=== PATIENT | female | born 1960 | race Caucasian/White ===

== ENCOUNTER 2022-08-30 11:02 | Observation (INO) | payer OTHER, SELFPAY ==
[2022-08-30] VITALS (24 sets, daily range): BP systolic 108–181; BP diastolic 80–148; PULSE 49–75; RESP 9–24; TEMP 36.1–36.6; O2SAT 96–100; BMI 21.8
--- NOTE | ~2022-08-30 | XR_ITS ---
EXAMINATION: XR chest 2V DATE: 08/30/2022 11:52 INDICATION: Palpitations. Shortness of breath. Dizziness. TECHNIQUE: Frontal and lateral views of the chest were obtained. COMPARISON: None. FINDINGS: The chest demonstrates clear lungs without pneumonia, pleural effusion, or pneumothorax. Th e heart size is normal. There are changes of anterior fusion procedure in cervical spine. There are s uture anchors in the humeral heads. IMPRESSION: 1. No acute cardiopulmonary disease. Reviewed, dictated and finalized at location A. [facility]
--- NOTE | 2022-08-30 11:10 | ECG_ITS ---
Measurements Intervals [place] Rate: 58 P: 65 AR: 168 QRS: 33 QRSD: 90 T: 21 QT: 401 QTc: 394 Interpretive Statements SINUS BRADYCARDIA FREQUENT ATRIAL PREMATURE COMPLEXES BASELINE ARTIFACT- V6 ABNORMAL ECG NO PREVIOUS ECG AVAILABLE FOR COMPARISON Electronically Signed On 08-30-2022 14:35:27 [employer]IE[employer] by Santino Caruso D.O.
[2022-08-30 12:16] LABS: Basophils Percent Auto 0.7 % (0.2-1.2); Eosinophils Absolute Auto 0.2 K/mm3 (0-0.3); Eosinophils Percent Auto 3.6 % (0-4.4); Hematocrit 41.6 % (37.0-47.0); Hemoglobin 13.7 g/dL (12.0-15.0); Immature Granulocyte Absolute 0.02 K/mm3 (0.00-0.031); Immature Granulocyte Percent A 0.3 % (0-0.5); Lymphocytes Absolute Auto 1.63 K/mm3 (0.9-3.2); Lymphocytes Percent Auto 27.8 % (18.3-44.2); Mean Corpuscular HGB Conc 32.9 g/dl (32-36); Mean Corpuscular Hemoglobin 27.7 pg (26-34); Mean Platelet Volume 9.8 fl (7.4-10.4); Monocytes Absolute Auto 0.7 K/mm3 (0.1-0.6); Monocytes Percent Auto 11.6 % (2.6-8.5); Neutrophils Absolute Auto 3.3 K/mm3 (1.3-6.7); Platelet Count Result 242 k/mm3 (150-375); Red Blood Count 4.95 M/mm3 (4.2-5.4); Red Cell Distribution Width 13.3 % (11.5-14.5); White Blood Count 5.9 K/mm3 (4.5-10.0)
[2022-08-30 12:25] LABS: Appearance Urine Clear (Clear); Bilirubin Urine Negative (Negative); Blood Urine Negative (Negative); Color Urine Yellow (Yellow); Glucose Urine UA Negative (Negative); Ketones Urine Negative (Negative); Leukocyte Esterase Ur Negative LEU/UL (Negative); Nitrate Urine Negative (Negative); Protein Urine Negative (Negative); Specific Grav Ur 1.015 (1.001-1.035); Urobilinogen Urine 0.2 mg/dL (<2.0)
[2022-08-30 12:26] LABS: Alanine Aminotransferase 25 U/L (6-35); Alkaline Phosphatase 82 U/L (38-126); Anion Gap 5 mmol/L (8-16); Aspartate Amino Transferase 30 U/L (14-36); Bilirubin,Total 0.5 mg/dL (0.2-1.3); Blood Urea Nitrogen 14 mg/dL (7-17); Calcium 9.5 mg/dL (8.4-10.2); Carbon Dioxide 30 mmol/L (22-30); Chloride 100 mmol/L (98-107); Estimated Glomerular Filt Rate > 60; Glucose 89 mg/dL (65-110); Magnesium 1.7 mg/dL (1.6-2.3); Potassium 4.1 mmol/L (3.4-5.0); Sodium 135 mmol/L (137-145)
[2022-08-30 12:28] LABS: Add Urine Microscopic? NO
[2022-08-30 12:29] LABS: Prothrombin Time 13.1 Seconds (11.1-14.7)
[2022-08-30 12:30] LABS: Partial Thromboplastin Time 41.2 SECONDS (22.3-36.8)
[2022-08-30 12:37] LABS: NT Pro B Type Natriuretic Pept 1240 pg/mL (19.9-100); Troponin I < 0.012 ng/mL (0.000-0.034)
--- NOTE | 2022-08-30 12:37 | ED.ARRPALP ---
HPI - Arrhythmia/Palpitations General Chief Complaint: Arrhythmia/Palpitations Stated Complaint: heart palpatations Time Seen by Provider: 08/30/22 11:12 History of Present Illness HPI narrative: Patient is a 62-year-old female who presents ER with heart palpitations. Ongoing for 2 days. Worsening today. Reports occasional lightheadedness. Feels as if her heart skipping beats. She takes nebivolol. No history of arrhythmia in the past. No chest pain or chest pressure. Has occasional shortness of breath. No fevers or chills or sweats. Related Data Allergies Allergy/AdvReac Type Severity Reaction Status Date / Time Sulfa (Sulfonamide Allergy Unknown Verified 09/29/15 12:44 Antibiotics) ciprofloxacin AdvReac Unknown Verified 09/29/15 12:44 QUINOLINS AdvReac Unknown Uncoded 09/29/15 12:44 Review of Systems Review of Systems: All systems reviewed & are unremarkable except as noted in HPI and below Constitutional: Constitutional: Denies chills, Denies fatigue and Denies fever(s) ENT: Denies nasal congestion and Denies sore throat Cardiovascular: Cardiovascular: Denies chest pain and Denies radiating jaw, neck or arm pain Comments: Palpitations Respiratory: Respiratory: Denies cough, Reports dyspnea and Denies wheezing Gastrointestinal: Gastrointestinal: Denies abdominal pain, Denies nausea and Denies vomiting Integumentary/Breasts: Skin/Breast: Denies erythema and Denies rash Neurologic: Reports dizziness, Denies syncope, Denies focal weakness and Denies numbness PMFSH Past Medical History Medical History (Updated 08/30/22 @ 14:38 by Emory Kiran MD) Depression Hyperlipidemia Hypertension Hypothyroidism Thyroid cancer Status post thyroidectomy. Surgical History Surgical History (Updated 08/30/22 @ 14:13 by Asya Modi PA-C) History of fusion of cervical spine (2009) History of hysterectomy History of thyroidectomy Social History Social History (Updated 08/30/22 @ 14:13 by Asya Modi PA-C) Social History: Surrogate medical decision maker: Reinier Samaniego, spouse. Code status: Full code. Additional living arrangements comments: Lives with spouse in [place]. Additional occupation/education comments: Works at [employer]. Exam Narrative: GENERAL: Well-appearing, well-nourished, and in no acute distress. HEAD: Normocephalic, atraumatic. EYES: PERRL and EOMI. ENT: Mucous membranes moist. CHEST: Clear to auscultation. No respiratory distress. HEART: Bradycardic and regular. Normal peripheral pulses. ABDOMEN: Soft, nontender, nondistended. EXTREMITIES: Normal range of motion. No edema. SKIN: Warm, dry, no rash. NEURO: Alert and oriented x3. PSYCH: Normal mood and affect. Course Course Emergency Course: Patient resting comfortably. Aware of diagnosis and treatment plan. Patient did have a 12-13 beat run of V. tach while in the ER and she was dizzy during it. Patient will be admitted to the hospitalist service. Cardiology has been contacted and will consult. Dr. Lewis wishes for the patient to have TSH and free T4 level added on and he would also like her to have an echocardiogram. Vital Signs Vital signs: Vital Signs Temperature 97.4 F L 08/30/22 11:07 Pulse Rate 51 L 08/30/22 11:07 Respiratory Rate 18 08/30/22 11:07 Blood Pressure 162/94 H 08/30/22 11:07 Pulse Oximetry 99 08/30/22 11:07 Oxygen Delivery Room Air 08/30/22 11:07 Temperature 97.4 F L 08/30/22 11:07 Pulse Rate 51 L 08/30/22 11:07 Respiratory Rate 18 08/30/22 11:07 Blood Pressure 162/94 H 08/30/22 11:07 Pulse Oximetry 99 08/30/22 11:07 Oxygen Delivery Room Air 08/30/22 11:07 MDM - Arrhythmia/Palpitations Lab Data 08/30/22 12:10 08/30/22 12:10 Labs: Lab Results 08/30/22 08/30/22 08/30/22 Range/Units 12:09 12:10 12:10 WBC 5.9 (4.5-10.0) K/mm3 RBC 4.95 (4.2-5.4) M/mm3 Hgb 13.
--- NOTE | 2022-08-30 14:00 | PM.IMHP ---
H&P: HPI History of Present Illness Date/Time: 08/30/22 14:00 Chief Complaint: Palpitations. Narrative: This is a very pleasant 62-year-old female with hypertension, hyperlipidemia, and hypothyroidism who presented to the emergency department for evaluation of palpitations. Patient provides the following history. Wednesday evening while watching television she developed sensations of fluttering in her chest and palpitations, almost as though she was skipping beats. Wednesday she and her were out furniture shopping and when she stood up from a sofa she suddenly felt near syncopal with palpitations. She felt better with rest and they returned home. Since that time she has had pretty continuous palpitations and fatigue. She has noticed that her heart rate has been in the 50s with a baseline heart rate in the 80s. She was started on nebivolol about 6 months ago though she does not think she had a drastic change in her heart rate and only noticed the bradycardia recently. CMP, CBC, troponin, and TSH were really unremarkable. Blood pressures have been stable since arrival. EKG showed a sinus bradycardia with frequent atrial premature complexes. While in the emergency department she did have an episode of nonsustained ventricular tachycardia and she is being admitted in this setting for close monitoring and Cardiology consultation. At the time my evaluation she feels okay and has no complaints. She has no known history of cardiac disease or dysrhythmia. No family history of long QT syndrome. She has not had chest pain, pleuritic pain, or palpitations. No new medications recently. Review of Systems Review of Systems: Twelve systems were reviewed and are negative except for as per HPI. COUNT INCLUDES THE [facility] Past Medical History Medical History (Updated 08/30/22 @ 20:46 by Asya Modi PA-C) Depression Fibromyalgia Hyperlipidemia Hypertension Hypothyroidism Thyroid cancer Status post partial thyroidectomy. Surgical History Surgical History (Updated 08/30/22 @ 20:46 by Asya Modi PA-C) History of fusion of cervical spine (2009) History of hysterectomy History of partial thyroidectomy History of repair of rotator cuff Bilateral. Family History Family History Father Acute myocardial infarction Social History Social History (Updated 08/30/22 @ 20:46 by Asya Modi PA-C) Social History: Surrogate medical decision maker: Reinier Samaniego, spouse. Code status: Full code. Smoking status: Never smoker Alcohol intake: current Drinks per week: 1 Substance use type: does not use Lack of Transportation: No Lack of Food: Never True Current Housing: I Have Housing Concerned About Future Housing: No Difficulty Paying Gas/Electric Bills: No Difficulty Paying for Meds: No Currently Unemployed: No Education: Bachelor's Degree Difficulty w/ Childcare or Family Care: No Additional living arrangements comments: Lives with spouse in [place]. 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 Spiritual care concerns: No Meds Home Medications and Allergies Home Medications Medication Instructions Recorded Confirmed Type albuterol sulfate 90 mcg/actuation 90 mcg inhalation Q12-24H PRN 08/30/22 08/30/22 History aerosol inhaler Shortness Of Breath atorvastatin 40 mg tablet 40 mg PO DAILY 08/30/22 08/30/22 History citalopram 40 mg tablet 40 mg PO DAILY 08/30/22 08/30/22 History cyclobenzaprine 10 mg tablet 10 mg PO Q12-24H PRN Pain, Moderate 08/30/22 08/30/22 History levothyroxine 125 mcg tablet 125 mcg PO DAILY 08/30/22 08/30/22 History nebivolol 10 mg tablet 10 mg PO DAILY 08/30/22 08/30/22 History rizatriptan 10 mg tablet 10 mg PO DAILY PRN Migraine 08/30/22 08/30/22 History Headache sulindac 150 mg tablet 150 mg PO HS 08/30/22 08/30/22 History valsartan 160 mg tablet 160 mg PO BID
[2022-08-30 14:28] LABS: Free T4 Free Thyroxine 1.71 ng/mL (0.78-2.19)
[2022-08-30 16:27] LABS: Troponin I < 0.012 ng/mL (0.000-0.034)
--- NOTE | 2022-08-30 16:28 | ADMGEN ---
This patient, Maci Samaniego, was admitted to IMU Room 200-01. 15:42 Patient/family oriented to hospital policies and general routines including ID bracelet, bed and alarms, visiting hours, pain management, procedures, bathroom and other care routines, personal items, smoking policy, room service/diet, and visiting hours. Information on how to activate the Rapid Response Team has been discussed. Patient/Family are encouraged to report perceived risks to care and to ask questions if they do not understand what they are told or what they should do.
[2022-08-30] MEDS: ACETAMINOPHEN 325 MG TABLET 650 MG PO (17:08)
[2022-08-30 18:26] LABS: Troponin I < 0.012 ng/mL (0.000-0.034)
[2022-08-31] VITALS (12 sets, daily range): BP systolic 129–157; BP diastolic 54–95; PULSE 51–71; RESP 16–20; TEMP 36–36.5; O2SAT 96–99
[2022-08-31 04:18] LABS: Anion Gap 3 mmol/L (8-16); Blood Urea Nitrogen 13 mg/dL (7-17); Calcium 9.2 mg/dL (8.4-10.2); Carbon Dioxide 33 mmol/L (22-30); Chloride 104 mmol/L (98-107); Estimated CRCL calculation 62 ml/min; Estimated Glomerular Filt Rate > 60; Glucose 93 mg/dL (65-110); Magnesium 1.8 mg/dL (1.6-2.3); Potassium 4.3 mmol/L (3.4-5.0); Sodium 140 mmol/L (137-145)
--- NOTE | 2022-08-31 06:00 | ECHO_ITS ---
Patient Info Name: Maci Samaniego Age: 62 years : 1960 Gender: Female Ht: 71 in Wt: 156 lbs BSA: 1.88 m2 HR: 58 bpm BP: 136 / 54 mmHg Heart Rhythm: Sinus Rhythm Exam Date: 08/31/2022 7:53 AM Exam Location: [facility] Patient Status: Outpatient Admit Date: 08/30/2022 Staff Ordering Physician: Emory Kiran MD Typesetting Machine Operator/Tender: Saman Pina RDCS, RT Attending Provider: Flavia Austin PA-C Referring Physician: Magno BALDWIN; Exam Type: CA echo doppler color flow Study Info Indications - V-tach I45.89 - Other specified conduction disorders Complete two-dimensional, color flow and Doppler transthoracic echocardiogram is performed. Strain analysis performed. Summary 1. Complete two-dimensional, color flow and Doppler transthoracic echocardiogram is performed. 2. Left ventricular chamber dimension is normal. 3. Left ventricular systolic function is normal, estimated at 55-60%. 4. Global longitudinal strain is normal at -21 %. 5. Right ventricular systolic function is normal. 6. No significant valvular disease. Left Ventricle Left ventricular chamber dimension is normal. Left ventricular systolic function is normal, estimated at 55-60%. There is no increased left ventricular wall thickness. The left ventricular diastolic function is normal. Global longitudinal strain is normal at -21 %. Right Ventricle Right ventricular chamber dimension is normal. Right ventricular systolic function is normal. Left Atria Left atrial chamber dimension is normal. Right Atria Right atrial chamber dimension is normal. Atrial Septum Intact interatrial septum visualized by color flow imaging. Aortic Valve The aortic valve is not well visualized. There is no aortic valve stenosis. There is no aortic valve regurgitation. There is mild aortic valve calcification. Pulmonic Valve The pulmonic valve is not well visualized. Mitral Valve The mitral valve has normal leaflets. There is no mitral valve stenosis. There is trace mitral valve regurgitation. Tricuspid Valve There is trace tricuspid valve regurgitation. Pericardium/Pleural There is no pericardial effusion. Inferior Vena Cava Normal inferior vena cava with <50% collapse upon inspiration consistent with elevated right atrial pressure, 8 mmHg. Aorta The aortic root size at the sinus of Valsalva is normal. There is mild aortic atherosclerosis. Left Ventricular Outflow Tract Name Value Normal LVOT 2D LVOT Diameter 2.0 cm LVOT Doppler LVOT Peak Gradient 4 mmHg LVOT Mean Gradient 3 mmHg LVOT VTI 26 cm LVOT VTI/AV VTI Ratio 1.0 LVOT Stroke Volume 80 ml LVOT CO 4.5 l/min LVOT CI 2.4 l/min/m2 Mitral Valve Name Value Normal
[2022-08-31] MEDS: LEVOTHYROXINE SODIUM 125 MCG TABLET PO (06:09)
[2022-08-31] MEDS: ATORVASTATIN 40 MG TABLET PO (09:50)
[2022-08-31] MEDS: VALSARTAN 160 MG TABLET PO ×2 (09:50→20:31)
--- NOTE | 2022-08-31 10:28 | PM.CNCAR ---
Assessment and Plan Assessment and plan (1) Palpitations: Code(s): R00.2 - Palpitations Status: Acute Assessment and Plan: EKG shows sinus rhythm with frequent premature atrial contractions. On telemetry, she does not have any evidence of significant ilene or tachy arrhythmias, pauses, high-degree blocks. There was some concern of nonsustained V-tach in the emergency department. Telemetry strip was reviewed -this is artifact. Reviewed with Dr. Mayen. Will review echocardiogram. 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 Recommendations to follow review of echocardiogram. History of Present Illness History of Present Illness Consult date/time: 08/31/22 10:28 Requesting physician: Asya Modi PA-C Consult reason: Other (NSVT) Reason For Visit: Nonsustained V Tech Narrative: Ms. Samaniego Is a 62-year-old female with a past medical history of hypertension, hyperlipidemia, and thyroid cancer status post thyroidectomy. this is a patient who presented to the emergency department with a chief complaint of palpitations. She has been experiencing intermittent palpitations for several days. She first noticed palpitations on Wednesday evening which she was watching TV. The next day, she had a recurrence of feeling fluttering in her chest. She denies having any chest pain. She does however experience shortness of breath when she feels palpitations. No syncope or presyncope. She does not have any known cardiac history or any history of arrhythmias. She does tell me that she has experienced palpitations in the past but not as frequent or long-lasting as the episodes she has been experiencing over the past few days. Review of Systems Constitutional: Constitutional: Denies chills, Denies fever(s), Denies headache(s) and Denies malaise Eyes: Eyes: Denies change in vision ENT: Reports Normal hearing present, Denies dizziness, Denies headache(s) and Denies hearing loss Cardiovascular: Cardiovascular: Denies chest pain, Denies chest pain at rest, Denies chest pain with activity, Denies syncope, Denies leg edema, Reports lightheadedness, Reports palpitations, Reports dyspnea and Denies dyspnea on exertion Respiratory: Respiratory: Denies cough, Denies dyspnea, Denies dyspnea on exertion and Denies wheezing Gastrointestinal: Gastrointestinal: Denies abdominal pain, Denies constipation and Denies diarrhea Genitourinary: Genitourinary: Denies hematuria and Denies dysuria Musculoskeletal: Musculoskeletal: Denies myalgias, Denies arthralgias and Denies muscle cramps Integumentary/Breasts: Skin/Breast: Denies wounds Neurologic: Reports Normal hearing present, Denies confusion, Denies dizziness, Denies syncope and Denies headache(s) Psychiatric: Psychiatric: Denies anxiety, Denies confusion and Denies depression Endocrine: Endocrine: Denies cold intolerance, Denies flushing, Denies heat intolerance and Denies palpitations Hematologic/Lymphatic: Hematologic/Lymphatic: Denies easy bleeding and Denies easy bruising Allergic/Immunologic: Allergic/Immunologic: Denies wheezing PMFSH Past Medical History Medical History Depression Fibromyalgia Hyperlipidemia Hypertension Hypothyroidism Thyroid cancer Status post partial thyroidectomy. Surgical History Surgical History History of fusion of cervical spine (2009) History of hysterectomy History of partial thyroidectomy History of repair of rotator cuff Bilateral. Family History Family History Father Acute myocardial infarction Social History Social History Social History: Surrogate medical decision maker: Reinier Samaniego, spouse. Code status: Full code. Smoking status: Never smoker Alcohol intake: current D
[2022-08-31] MEDS: MAGNESIUM SULF 2 GM/WATER 50ML 2 GM/50 ML BAG IVPB (12:04)
--- NOTE | 2022-08-31 17:08 | PM.IMPN ---
Progress Note: A&P Assessment and Plan (1) Palpitations: Code(s): R00.2 - Palpitations Status: Acute (2) Nonsustained ventricular tachycardia: Code(s): I47.29 - Other ventricular tachycardia Status: Acute (3) Hypothyroidism: Code(s): E03.9 - Hypothyroidism, unspecified Status: Acute (4) Hypertension: Code(s): I10 - Essential (primary) hypertension Status: Acute (5) Hypomagnesemia: Code(s): E83.42 - Hypomagnesemia Status: Acute Plan The patient presented to the emergency department for evaluation of palpitations with associated dizziness, lightheadedness, flushing the last couple of days. She has been persistently bradycardic and EKG showed frequent PACs. While being monitored in the ED she had a run of suspected nonsustained ventricular tachycardia, however this was felt to be artifact per Cardiology. she has been seen in evaluation by Cardiology who recommends 30 day personnel monitor following discharge. Echocardiogram completed which showed normal LV systolic function at 55-60% with no significant valvular disease. TSH is within normal limits. will check a.m. cortisol. Nebivolol on hold due to bradycardia, however no significant ilene arrhythmias or pauses noted. Blood pressures are stable. Continue to monitor on telemetry overnight. Will downgrade to medical floor. appreciate further Cardiology recommendations regarding patient's medications. continue home levothyroxine. Magnesium is 1.8. 2 g magnesium sulfate supplemented. Recheck tomorrow morning Subjective Date/time seen: 08/31/22 17:08 Interval history: date of service: 08/31/2022 Maci Samaniego is a 62-year-old female with a history of thyroid cancer s/p thyroidectomy, hypothyroidism, hypertension, hyperlipidemia, fibromyalgia, depression who is seen in follow-up for palpitations. Patient reports that she has been having episodes of palpitations intermittently, lasting 4-5 minutes occurring 1-2 times an hour. States it feels like a fluttering in her chest with associated flushing, sweating, lightheadedness, and dizziness. No chest pain. No nausea or vomiting. Denies arm pain, jaw pain. No numbness or tingling. Review of Systems Review of Systems: All systems reviewed & are unremarkable except as noted in HPI and below Exam Narrative: General: well-nourished, well-appearing 62-year-old female, sitting up in bed, comfortable, NARD Neuro: awake, alert and oriented x4, speech clear, no focal neuro deficits noted HEENMT: normocephalic, atraumatic, EOMI, sclerae anicteric Respiratory: clear to auscultation bilaterally, nonlabored breathing Cardio: regular rate, regular rhythm with S1-S2 Abdomen: nondistended, normoactive bowel sounds, soft, nontender to palpation Extremities: no edema, erythema, or tenderness to palpation, DP pulses 2+ bilaterally Skin: no rashes or lesions, warm and dry Psych: appropriate mood and affect, judgment and insight intact Objective Data Vital Signs Vital Signs: Vital Signs - 24 hr 08/30/22 18:00 08/30/22 20:00 08/30/22 20:00 Temperature 96.9 F L Pulse Rate 75 63 62 Respiratory Rate 16 Blood Pressure 141/80 H Pulse Oximetry 96 Oxygen Delivery 08/30/22 20:00 08/30/22 23:01 08/30/22 22:00 Temperature 97.9 F Pulse Rate 60 61 Respiratory Rate 16 Blood Pressure 145/88 H Pulse Oximetry 96 98 Oxygen Delivery Room Air 08/31/22 00:00 08/31/22 02:00 08/31/22 00:00 Temperature Pulse Rate 60 55 L Respiratory Rate Blood Pressure Pulse Oximetry 98 Oxygen Delivery Room Air 08/31/22 04:00 08/31/22 04:00 08/31/22 04:00 Temperature 97.7 F Pulse Rate 51 L 58 L Respiratory Rate 18 Blood Pressure 136/54 L Pulse Oximetry 98 97 Oxygen Delivery Room Air 08/31/22 06:00 08/31/22 08:00 08/31/22 08:00 Temperature 97.6 F Pulse Rate 67 58 L Respiratory Rate 16 Blood Pressure 133/87
--- NOTE | 2022-08-31 21:14 | PC.NURSE ---
Report given to Rosalie ALTAMIRANO on 2 Medical
--- NOTE | 2022-08-31 22:48 | PC.NURSE ---
Pt arrived to 2nd Medical Floor @[id number].
--- NOTE | 2022-08-31 22:49 | PC.NURSE ---
Pt arrived to 2nd Medical Floor Room 242 @[id number] from [facility].
[2022-09-01] VITALS (8 sets, daily range): BP systolic 114–140; BP diastolic 79–90; PULSE 49–76; RESP 16–20; TEMP 36.1–36.5; O2SAT 97–100
[2022-09-01 05:30] LABS: Hematocrit 41.1 % (37.0-47.0); Hemoglobin 13.2 g/dL (12.0-15.0); Mean Corpuscular HGB Conc 32.1 g/dl (32-36); Mean Corpuscular Hemoglobin 26.7 pg (26-34); Mean Platelet Volume 9.5 fl (7.4-10.4); Platelet Count Result 197 k/mm3 (150-375); Red Blood Count 4.95 M/mm3 (4.2-5.4); Red Cell Distribution Width 13.2 % (11.5-14.5); White Blood Count 4.3 K/mm3 (4.5-10.0)
[2022-09-01 05:55] LABS: Anion Gap 6 mmol/L (8-16); Blood Urea Nitrogen 15 mg/dL (7-17); Calcium 9.1 mg/dL (8.4-10.2); Carbon Dioxide 28 mmol/L (22-30); Chloride 105 mmol/L (98-107); Estimated CRCL calculation 69 ml/min; Estimated Glomerular Filt Rate > 60; Glucose 102 mg/dL (65-110); Potassium 4.1 mmol/L (3.4-5.0); Sodium 139 mmol/L (137-145)
[2022-09-01] MEDS: LEVOTHYROXINE SODIUM 125 MCG TABLET PO (06:01)
[2022-09-01] MEDS: VALSARTAN 160 MG TABLET PO (08:19)
[2022-09-01] MEDS: ATORVASTATIN 40 MG TABLET PO (08:19)
--- NOTE | 2022-09-01 11:38 | PM.DS ---
DS: Admitting Diagnosis Discharge Date 09/01/2022 Admitting Diagnosis palpitations DS: Discharge Diagnosis Discharge Diagnosis (1) Palpitations: Code(s): R00.2 - Palpitations Status: Acute Assessment and Plan: The patient presented to the emergency department for evaluation of palpitations with associated dizziness, lightheadedness, and flushing Noted to be bradycardic. Nebivolol initially held. Decreased to 2.5 mg daily per cardiology recommendations Seen in consultation by cardiology during admission No evidence of significant arrhythmias, pauses, or blocks on telemetry monitoring Patient will continue with 30 day event monitor following discharge and will follow up with cardiology Echocardiogram completed which showed normal LV systolic function at 55-60% with no significant valvular disease. Magnesium was supplemented and normalized. No ongoing electrolyte abnormalities TSH and AM cortisol within normal limits (2) Nonsustained ventricular tachycardia: Code(s): I47.29 - Other ventricular tachycardia Status: Ruled-out Assessment and Plan: While being monitored in the ED she had a run of suspected nonsustained ventricular tachycardia, however this was felt to be artifact per Cardiology. (3) Hypothyroidism: Code(s): E03.9 - Hypothyroidism, unspecified Status: Acute Assessment and Plan: TSH within normal limits. Continue levothyroxine (4) Hypertension: Code(s): I10 - Essential (primary) hypertension Status: Acute Assessment and Plan: blood pressure is controlled during and moody. Continue home valsartan. Nebivolol decreased to 2.5 mg daily as above (5) Hypomagnesemia: Code(s): E83.42 - Hypomagnesemia Status: Acute Assessment and Plan: Mag was 1.7 on presentation. Received 2 g IV mag sulfate and levels normalized. 2.0 at time of discharge DS: Summary Hospital Course Hospital Course: date of admission: 08/30/2022 date of discharge: 09/01/2022 Maci Samaniego is a 62-year-old female with a history of thyroid cancer s/p thyroidectomy, hypothyroidism, hypertension, hyperlipidemia, fibromyalgia, depression? who presented to the emergency department on 08/30/2022 with complaints of palpitations ongoing for 2 days with associated lightheadedness. On presentation to the ED, her heart rate was 51, additional vital signs were stable, CBC and BMP unremarkable, troponin negative, BNP 1200, magnesium 1.7, TSH within normal limits, CXR with no acute findings, an EKG showed sinus bradycardia with PACs. She was admitted to the hospitalist service for further evaluation management was seen in consultation by cardiology. Please see above for further details. Patient was monitored on telemetry during admission. she did have mild bradycardia but maintained sinus rhythm with no pauses or arrhythmias. Her palpitations resolved and she was feeling back to her baseline state of health. Nebivolol was decreased to 2.5 mg daily. Patient will obtain a 30 day heart monitor and follow-up with cardiology as an outpatient. Patient was educated on her medications and worrisome signs and symptoms for which to return. She felt comfortable with plans for discharge home. She was discharged in hemodynamically stable condition on 09/01/2022. Time Spent with Patient Time attestation: Total time spent providing and/or coordinating discharge services: 45 minutes Time spent: Greater than 30 minutes Exam Narrative: General: well-nourished, well-appearing 62-year-old female, sitting up in bed, comfortable, NARD Neuro: awake, alert and oriented x4, speech clear, no focal neuro deficits noted HEENMT: normocephalic, atraumatic, EOMI, sclerae anicteric Respiratory: clear to auscultation bilaterally, nonlabored breathing Cardio: regular rate, regular rhythm with S1-S2 Abdomen: nondistended, normoactive bowel sounds, soft, nontender to palp
== END 2022-09-01 14:10 | disposition home or self-care (01) ==
LOC: ANHED 14:38 → ANHIMU 15:00 → ANH2MED 08-31 21:18
PROVIDERS: Physician Assistant; Admitting Provider Family Medicine; Emergency Provider Emergency Medicine; PCP Internal Medicine; Visit Provider Physician Assistant
DX: R00.2 Palpitations (principal); I47.29 Other ventricular tachycardia; E89.0 Postprocedural hypothyroidism; I10 Essential (primary) hypertension; E83.42 Hypomagnesemia; R41.0 Disorientation, unspecified; R06.02 Shortness of breath; G43.909 Migraine, unspecified, not intractable, without status migrainosus; F32.A Depression, unspecified; E78.5 Hyperlipidemia, unspecified; M79.7 Fibromyalgia; F10.90 Alcohol use, unspecified, uncomplicated; R94.31 Abnormal electrocardiogram [ECG] [EKG]; Z85.850 Personal history of malignant neoplasm of thyroid; Z79.51 Long term (current) use of inhaled steroids; Z79.899 Other long term (current) drug therapy
CPT/HCPCS: 36415; 71046; 80048; 80053; 81003; 82533; 83735; 83880; 84439; 84443; 84484; 85025; 85027; 85610; 85730; 93005; 93306; 96374; 99285; A9270; G0378; J3475